=== PATIENT | female | born 2000 | race Caucasian/White ===

== ENCOUNTER 2023-10-11 19:46 | Emergency (ER) | payer OTHER ==
[~2023-10-11] VITALS: Ht 160 cm; Wt 137.9 kg
[2023-10-11 20:08] VITALS: TEMP 98.2
[2023-10-11] MEDS: ONDANSETRON HCL/PF 4 MG/2 ML VIAL IV ONE ×2 (21:30→23:30)
[2023-10-11] MEDS: IV NS 0.9% 1,000 ML BAG IV ONE (21:39)
[2023-10-11] MEDS ORDERED: ONDANSETRON HCL/PF 4 MG/2 ML VIAL ONE (21:43)
[2023-10-11 22:35] LABS: APPEARANCE,URINE SLIGHTLY CLOUDY (CLEAR); BILIRUBIN,URINE NEGATIVE (NEGATIVE); BLOOD, URINE 3+ Ery/uL (NEGATIVE); COLOR,URINE YELLOW (YELLOW); KETONES,URINE NEGATIVE (NEGATIVE); LEUKOCYTE ESTERASE ,URINE NEGATIVE (NEGATIVE); NITRITE, URINE NEGATIVE (NEGATIVE); PREGNANCY TEST URINE QUAL NEGATIVE (NEGATIVE); PROTEIN,URINE TRACE mg/dl (NEGATIVE); UGLUCOSE NEGATIVE (NEGATIVE)
[2023-10-11 22:36] LABS: ADD URINE CULTURE NO; BACTERIA,URINE Rare /HPF (None Seen); SQUAMOUS EPITHELIAL CELL,UR Few /HPF (None Seen)
[2023-10-11] MEDS ORDERED: ONDA4TAB5 PO (23:09)
[2023-10-11 23:20] VITALS: BP 156/101
[2023-10-11 23:30] VITALS: O2SAT 98
== END 2023-10-11 23:30 | disposition home or self-care (01) ==
LOC: ER 19:51
DX: R31.9 Hematuria, unspecified (principal); R11.2 Nausea with vomiting, unspecified; R35.0 Frequency of micturition; R39.15 Urgency of urination
CPT/HCPCS: 99283; 96374; 96361; 84703; 81001; J2405; J7030